=== PATIENT | female | born 1990 | race Caucasian/White ===

== ENCOUNTER 2018-04-29 17:55 | Emergency (ER) | payer OTHER, SELFPAY ==
[2018-04-29 18:00] VITALS: BP 125/81; PULSE 102; RESP 20; TEMP 37; O2SAT 100
[2018-04-29 18:24] LABS: Add Manual Diff / Slide Review NO; Basophils Absolute Auto 100 /uL (0-100); Basophils Percent Auto 0.4 % (0-2); Eosinophils Absolute Auto 0 /uL (0-450); Eosinophils Percent Auto 0.2 % (2-4); Hematocrit 43.8 % (36-46); Hemoglobin 14.6 g/dL (12.0-16.0); Lymphocytes Absolute Auto 400 /uL (1100-4500); Lymphocytes Percent Auto 2.3 % (25-40); Mean Corpuscular HGB Conc 33.3 % (30-36); Mean Corpuscular Hemoglobin 29.7 PG (26-34); Mean Corpuscular Volume 89.4 fL (80-100); Monocytes Absolute Auto 400 /uL (0-900); Monocytes Percent Auto 2.5 % (3-14); Neutrophils Absolute Auto 15800 /uL (1500-7000); Neutrophils Percent Auto 94.6 % (50-75); Platelet Count 183 X10^3/uL (150-400); Red Cell Distribution Width 12.6 % (11.6-14.8); White Blood Cell Count 16.8 X10^3/uL (4.5-11.0)
[2018-04-29] MEDS: ONDANSETRON 4 MG ODT SL (18:29)
[2018-04-29] MEDS: SODIUM CHLORIDE 0.9% 1,000 ML 1000 ML IV ×2 (18:29→19:38)
[2018-04-29 18:33] LABS: Alanine Aminotransferase 20 IU/L (9-52); Albumin 4.8 g/dL (3.5-5.0); Albumin Globulin Ratio 1.4 (1.0-2.8); Alkaline Phosphatase 47 U/L (38-126); Aspartate Aminotransferase 19 IU/L (14-36); BUN Creatinine Ratio 24.4 (6-22); Bilirubin Total 0.7 mg/dL (0.2-1.3); Blood Urea Nitrogen 22 mg/dL (7-17); Calcium 9.1 mg/dL (8.4-10.2); Carbon Dioxide 23 mmol/L (22-32); Chloride 106 mmol/L (98-107); Estimated Glomerular Filt Rate > 60.0 mL/min (>60); Globulin 3.5 g/dL (1.7-4.1); Glucose 91 mg/dL (70-100); HEMOLYSIS < 15 (0-50); Potassium 3.6 mmol/L (3.4-5.1); Sodium 142 mmol/L (137-145); Total Protein 8.3 g/dL (6.3-8.2)
--- NOTE | 2018-04-29 19:14 | ED.ABDPAIN ---
HPI - Abdominal Pain General Chief Complaint: Abdominal Pain Stated Complaint: Vomiting, diahrrea, chills Time Seen by Provider: 04/29/18 19:14 Source: patient Mode of arrival: ambulatory Limitations: no limitations History of Present Illness HPI narrative: 27-year-old otherwise healthy female here for evaluation of less than 24 hr of nausea vomiting and diarrhea. Did travel to [place] recently. No history of antibiotic use. No urinary symptoms. No vaginal discharge. No blood in the stool or the vomit. No fevers. Related Data Previous Rx's Medication Instructions Recorded ondansetron 4 mg PO Q6-8H PRN #10 tab 04/29/18 Allergies Allergy/AdvReac Type Severity Reaction Status Date / Time No Known Drug Allergies Allergy Verified 04/29/18 18:02 Review of Systems Constitutional Denies fever(s) and Denies headache(s) ENT Ears, Nose, Mouth, and Throat: Denies vertigo, Denies dizziness and Denies headache(s) Cardiovascular Denies chest pain and Denies dyspnea Respiratory Denies dyspnea Gastrointestinal Gastrointestinal: Reports abdominal pain, Reports diarrhea, Reports nausea and Reports vomiting Genitourinary Denies dysuria and Denies flank pain Musculoskeletal Denies myalgias and Denies arthralgias Integumentary/Breasts Denies rash Neurologic Denies vertigo, Denies dizziness and Denies headache(s) Hematologic/Lymphatic Denies easy bleeding and Denies easy bruising PFSH Medical History Healthy adult (Acute) Surgical History No pertinent past surgical history (Acute) Social History lives independently: Yes Exam Initial Vital Signs Initial Vital Signs: Vital Signs Temperature 98.6 F 04/29/18 18:00 Pulse Rate 102 H 04/29/18 18:00 Respiratory Rate 20 04/29/18 18:00 Blood Pressure 125/81 04/29/18 18:00 Pulse Oximetry 100 04/29/18 18:00 Const General: cooperative, healthy appearing, comfortable, well developed, well groomed and No acute distress Orientation: alert, awake and oriented x3 HENMT Head: normal to inspection and normocephalic Resp Effort & Inspection: normal respiratory effort Auscultation: clear to auscultation bilaterally Cardio Rate: regular rate Rhythm: regular rhythm GI Inspection: non-distended Palpation: soft, No firm and tender (Generalized tenderness without rebound or guarding) Skin Lesions: no lesions Rashes: no rashes Neuro General: alert, awake and oriented x3 Extrem General: normal to inspection and capillary refill normal Psych Appearance: grossly normal and well kempt Course Orders Ordered: ED Orders 04/29/18 18:15 CBC [Complete Blood Count AUTO DIFF] Stat Comprehensive Metabolic Panel Stat Discontinued Medications Sodium Chloride (Normal Saline 0.9%) 1,000 mls @ 1,000 mls/hr IV BOLUS ONE Stop: 04/29/18 19:15 Last Infusion: 04/29/18 20:25 Dose: 0 mls/hr Admin: 04/29/18 18:29 Dose: 1,000 mls/hr Sodium Chloride (Normal Saline 0.9%) 1,000 mls @ 1,000 mls/hr IV BOLUS ONE Stop: 04/29/18 20:30 Last Admin: 04/29/18 19:38 Dose: 1,000 mls/hr Ondansetron HCl (Zofran Odt) 4 mg SL NOW ONE Stop: 04/29/18 18:07 Last Admin: 04/29/18 18:29 Dose: 4 mg Ondansetron HCl (Zofran) 4 mg IV NOW ONE Stop: 04/29/18 19:32 Last Admin: 04/29/18 19:38 Dose: 4 mg Ondansetron HCl (Zofran Odt Prepack) 1 bottle MISC SEEINSTR ONE Stop: 04/29/18 20:43 Vital Signs - 8 hr 04/29/18 18:00 04/29/18 20:05 Temperature 98.6 F Pulse Rate 102 H 89 Respiratory Rate 20 17 Blood Pressure 125/81 Blood Pressure [Left Arm] 115/75 Pulse Oximetry 100 100 MDM - Abdominal Pain Lab Data Attestation: I reviewed the patient's lab results. Result diagrams: 04/29/18 18:15 04/29/18 18:15 Lab Results 04/29/18 04/29/18 Range/Units 18:15 18:15 WBC 16.8 H (4.5-11.0) X10^3/uL RBC 4.90 (4.0-5.2) X10^6/uL Hgb 14.6 (12.0-16.0) g/dL Hct 43.8 (36-46) % MCV 89.4 (80-100) fL MCH 29.7 (26-34) PG MCHC 33.3 (30-36) % RDW 12.6 (11.6-14.8) % Plt Count 183 (150-400) X10^3/uL Neut % (Auto) 94.6 H (50-75) % Lymph % (Auto) 2.3 L (25-40) % Marshall % (Auto) 2.5 L (3-14) % Eos % (Auto) 0.2 L (2-4) % Baso % (Auto) 0.4 (0-2) % Neut # (Auto) 92014 H (9641-9741) /uL Lymph # (Auto) 400 L (1127-0475) /uL Marshall # (Auto) 400 (0-900) /uL Eos # (Auto) 0 (0-450) /uL Baso # (Auto) 100 (0-100) /uL Sodium 142 (137-145) mmol/L Potassium 3.6 (3.4-5.1) mmol/L Chloride 106 (98-107) mmol/L Carbon Dioxide 23 (22-32) mmol/L BUN 22 H (7-17) mg/dL Creatinine 0.90 (0.52-1.04) mg/dL Estimated GFR > 60.0 (>60) mL/min BUN/Creatinine Ratio 24.4 H (6-22) Glucose 91 (70-100) mg/dL Calcium 9.1 (8.4-10.2) mg/dL Total Bilirubin 0.7 (0.2-1.3) mg/dL AST 19 (14-36) IU/L ALT 20 (9-52) IU/L Alkaline Phosphatase 47 (38-126) U/L Total Protein 8.3 H (6.3-8.2) g/dL Albumin 4.8 (3.5-5.0) g/dL Globulin 3.5 (1.7-4.1) g/dL Albumin/Globulin Ratio 1.4 (1.0-2.8) MDM Narrative Medical decision making narrative: Patient with a benign abdominal exam. Does have a leukocytosis however this could be secondary to demargination from her vomiting that she has been having since noon or also from a viral gastritis. Will hold on CT scan for now given her exam. She feels much better after the fluids and the Zofran. She was tolerating oral intake. Will hold on further workup for now. Will send home with a prescription for Zofran. She was given return precautions. She expressed understanding and agreement with plan. Discharge Plan Departure Patient Disposition: Home Clinical Impression: Nausea & vomiting, Abdominal pain, Diarrhea Instructions: Diarrhea, DI for Abdominal Pain-Adult, Nausea and Vomiting-Adult Activity Restrictions/Additional Instructions: Take the nausea medication as needed. Make sure your staying hydrated by drinking small amounts of fluid over long periods of time. If your abdominal pain changes or gets worse return to the emergency department for further evaluation Prescriptions: New ondansetron 4 mg tablet,disintegrating 4 mg PO Q6-8H PRN (Reason: nausea and vomiting) Qty: 10 RF: 0
[2018-04-29] MEDS: ONDANSETRON 4 MG/2 ML INJ IV (19:38)
[2018-04-29 20:05] VITALS: BP 115/75; PULSE 89; RESP 17; O2SAT 100
[2018-04-29] MEDS: ONDANSETRON 4 MG ODT PREPACK 1 BOTTLE MISC (20:52)
[2018-04-29 20:54] VITALS: BP 105/55; PULSE 88; RESP 18; O2SAT 98
== END 2018-04-29 20:54 | disposition home or self-care (01) ==
PROVIDERS: Emergency Provider Emergency Medicine
DX: R11.10 Vomiting, unspecified (principal); R10.9 Unspecified abdominal pain; R19.7 Diarrhea, unspecified
CPT/HCPCS: 36591; 80053; 85025; 96361; 96374; 99283; 99285; J2405

== ENCOUNTER → 2020-09-22 09:15 | Outpatient (CLI) | payer OTHER, SELFPAY ==
--- NOTE | 2020-09-22 09:16 | DI.US.S_ITS ---
PROCEDURE: US OB <= 14 WEEKS FETUS INDICATIONS: DATES OUTSIDE/PRIOR DATING DATA: Last menstrual period (LMP): 07/26/20 LMP-based estimated date of delivery (LUIS ANTONIO): 05/02/21. First dating scan (date and location): This study, 09/22/20. Estimated date of delivery (LUIS ANTONIO) from first dating scan: 05/09/21. TECHNIQUE: Real-time scanning was performed of the fetus and maternal pelvic organs, with image documentation. Endovaginal scanning was also performed to better visualize the fetus and maternal ovaries. COMPARISON: None. FINDINGS: Embryos: There is a twin gestation, early, with estimated gestational age by crown rump length of 7 weeks 2 days for fetus a and 7 weeks 0 days for fetus B. However, no cardiac activity was seen at either of the 2 gestations. The morphology is indicative of diamniotic monochorionic or diamniotic dichorionic. Measurement variability in dating: +/- 4 weeks by LMP, +/- 7 days by mean sac diameter (use before 6 weeks gestation if crown-rump length not able to be measured), +/- 5 days by crown-rump length (up to 8 weeks 6 days gestation), +/- 7 days by crown-rump length (up to 13 weeks 6 days gestation). Maternal organs: Ovaries normal.. IMPRESSION: Twin gestation, ranging between 7 weeks 0 days and 7 weeks 2 days of estimated gestational age. Diamniotic gestational sacs. No cardiac activity observed. With estimated gestational age noted above cardiac activity should be observed. Correlation with quantitative beta HCG may be warranted. Dictated by: Bentley Khan M.D. on 09/22/2020 at 14:11 Approved by: Bentley Khan M.D. on 09/22/2020 at 14:21
[2020-09-22 17:30] LABS: HCG Quantitative /Beta subunit 46216 mIU/mL
== END ==
PROVIDERS: PCP Family Medicine; Referring Provider Family Medicine; Visit Provider Family Medicine
DX: O30.001 Twin pregnancy, unspecified number of placenta and unspecified number of amniotic sacs, first trimester (principal); Z3A.01 Less than 8 weeks gestation of pregnancy
CPT/HCPCS: 36415; 76801; 76802; 76817; 84702

== ENCOUNTER → 2020-09-24 10:35 | Outpatient (CLI) | payer OTHER, SELFPAY ==
[2020-09-24 11:28] LABS: Appearance Urine UA CLEAR; Bilirubin Urine UA NEGATIVE (NEGATIVE); Color Urine UA YELLOW; Glucose Urine UA NEGATIVE (Negative); Ketones Urine UA NEGATIVE (NEGATIVE); Leukocyte Esterase Urine UA TRACE (NEGATIVE); Nitrite Urine UA NEGATIVE (Negative); Occult Blood Urine UA TRACE-INTACT (Negative); Protein Urine UA NEGATIVE (Negative); Specific Gravity Urine UA 1.025 (1.000-1.035); Urobilinogen Urine UA 0.2 E.U./dL (0.2)
[2020-09-24 11:31] LABS: pH Urine UA 5.5 (4.5-8.0)
[2020-09-24 11:43] LABS: Amorphous Sediment Urine 2+; Bacteria Urine Few (2-10); Culture Indicated Urine Cult Not Indicated; Mucus Urine 2+ (Negative); RBC Urine 1-5/HPF (0-5/HPF); Squamous Epithelial Cell Urine 5-10 /HPF (0-5/HPF); WBC Urine 1-5/HPF (0-5/HPF)
[2020-09-24 12:27] LABS: HCG Quantitative /Beta subunit 46076 mIU/mL
== END ==
PROVIDERS: PCP Family Medicine; Referring Provider Family Medicine; Visit Provider Family Medicine
DX: Z34.81 Encounter for supervision of other normal pregnancy, first trimester (principal); Z34.90 Encounter for supervision of normal pregnancy, unspecified, unspecified trimester
CPT/HCPCS: 81003; 81015; 84702; 87086

== ENCOUNTER → 2020-09-28 10:00 | Outpatient (CLI) | payer OTHER, SELFPAY ==
[2020-09-28 11:24] LABS: COVID19 -Nasal RAPID Negative (Negative)
== END ==
PROVIDERS: PCP Family Medicine; Visit Provider Obstetrics & Gynecology
DX: Z01.812 Encounter for preprocedural laboratory examination (principal); Z20.822 Contact with and (suspected) exposure to COVID-19
CPT/HCPCS: 87635

== ENCOUNTER 2020-09-29 06:43 | Day surgery (SDC) | payer OTHER, SELFPAY ==
[2020-09-28 14:34] VITALS: BMI 29.1
[2020-09-29] VITALS (7 sets, daily range): BP systolic 113–124; BP diastolic 66–87; PULSE 62–99; RESP 11–16; TEMP 36.1–37.3; O2SAT 98–100; BMI 29.1
--- NOTE | 2020-09-29 | PATH_ITS ---
[facility] Accession Number: [id number] . 01 Material submitted: . product of conception - PRODUCTS OF CONCEPTION . 02 Diagnosis: Products of Conception: Products of conception identified. [facility] 10/02/2020 1048 Local . 02 Electronically signed: . Evie Chinchilla MD, Pathologist NPI- [id number] . 01 Gross description: . The specimen is received in formalin, labeled products of conception and consists of multiple bro-pink fragments of soft tissue and clotted blood measuring 10.0 x 6.5 x 2.0 cm in aggregate. Candidate chorionic villi are identified. No parts are identified. Systems Architect sections are submitted in cassettes A1-A3. ([id number]) /[facility] 10/01/2020 0909 Local . 02 Pathologist provided ICD-10: O02.1 . 02 CPT . 903286 Performed at: 01 [facility] Cytology [address] [place] [id number] MD Azam Whiting MD Phone: [phone] Performed at: 02 [facility] [address] [place], [place] [id number] MD Jennifer Bullock MD Phone: [phone]
[2020-09-29] MEDS: LACTATED RINGERS 1,000 ML 100 ML IV (07:13)
--- NOTE | 2020-09-29 07:14 | SUR.OPER ---
Lithotomy on padded OR bed, head on pillow, arms secured on padded arm boards at <90 degrees abduction. Legs secured in padded yellow fins stirrups.
--- NOTE | 2020-09-29 07:36 | PM.HP.1 ---
History of Present Illness History of Present Illness Date Patient Seen: 09/29/20 Time Patient Seen: 07:36 Chief complaint: SDC Narrative: Patient is a 30-year-old 2 para 1 with a missed at 7 weeks with a twin gestation. She presents for a scheduled suction D&C. Patient History Medical History (Updated 09/07/20 @ 13:01 by Sallie August, RN) Acne (~1999) Colon polyps (~2018) Cystic acne Healthy adult Hemorrhoids IBS (irritable bowel syndrome) (~2015) Irritable bowel syndrome with constipation (~2015) Overweight (BMI 25.0-29.9) Plantar warts (~1999) labor (~2015) (spontaneous vaginal delivery) (~10/23/15) Surgical History (Updated 09/07/20 @ 12:27 by Sallie August RN) Anesthesia Gave to child recently (~10/23/15) History of colonoscopy (~2019) History of removal of skin mole (~2005) No pertinent past surgical history [place] teeth removed (~2007) Family & Social History Family History (Updated 09/07/20 @ 12:25 by Sallie August, SHARA) Father History of kidney cancer Hypertension Mother Chronic back pain Grandfather History of heart disease Breast cancer Colon cancer Grandmother Cancer Grandfather History of heart disease Hypertension Hyperlipidemia Stroke Aortic aneurysm Grandmother Breast cancer Dementia Cancer Daughter Asthma Family/Other COPD (chronic obstructive pulmonary disease) Family/Other Hyperlipidemia Hypertension Social History: household members spouse,children lives independently Yes Tobacco & Substance use: Smoking Status Never smoker alcohol intake former Substance Use Type does not use Meds Home Medications and Allergies Home Medications Medication Instructions Recorded Confirmed Type prenat.vits,sunil,[id number] 1 tab PO DAILY 09/07/20 09/29/20 History Allergies Allergy/AdvReac Type Severity Reaction Status Date / Time No Known Drug Allergies Allergy Verified 09/29/20 07:05 Exam Vital Signs (past 8 hours): - 09/29/20 07:05 Temperature 97 F L Pulse Rate 62 Respiratory Rate 14 Blood Pressure 119/76 Pulse Oximetry 100 Oxygen Delivery Method Room Air Narrative Exam Narrative: HEENT: No thyromegaly, no anterior cervical or supraclavicular lymphadenopathy. Lungs:Clear to auscultation bilaterally, no wheezes. Cardiovascular: Regular rate and rhythm, no murmurs, rubs, or gallops. Abdomen: No scars. No hepatosplenomegaly. No masses palpable. External genitalia: Normal Vagina: Normal Cervix: Normal Bimanual exam: 9 Week size uterus. Mobile. Assessment & Plan Assessment & Plan narrative: Assessment: 30-year-old 2 para 1 with a missed of a twin gestation at 7 weeks Plan: Suction D&C The risks, benefits, and alternatives to the procedure were explained to the patient. The risks including bleeding, infection, and uterine perforation. She understands these risks and agrees to proceed. A full par Q was held and consent form was signed. COVID-19 COVID-19 status: Negative Result date/Date tested (Pos, Neg/Pending): 09/28/20 Time Spent With Patient Time with patient: 15-24 minutes
--- NOTE | 2020-09-29 07:38 | PM.PREOP ---
Pre-operative Note COVID-19 COVID-19 status: Negative Result date/Date tested (Pos, Neg/Pending): 09/28/20 Interval Note History & Physical reviewed/Exam performed by Physician: Yes Changes to H&P: No H&P completed within 30 days and has changed as indicated here:: 09/29/20
--- NOTE | 2020-09-29 08:25 | PM.GYNOP.1 ---
Operative Date/Time/Diagnoses Date of procedure: 09/29/20 Time of procedure: 08:25 Pre-op diagnosis: Missed of twins at 7 weeks gestation Post-op diagnosis: same Procedure & Clinicians Procedure: Procedures Operation Date: 09/29/20 07:45 Actual Procedures Side Surgeon rosalia Pearson MD Indications: Missed of twins at 7 weeks gestation Surgeon: Loreta Pearson Anesthesia Type: General (LMA) Operative Notes Findings: 9 week size anteverted uterus Large amount of products conception Closure Type: not applicable Specimen(s): products of conception Estimated blood loss (mL): 100 Blood products transfused: none Procedure in detail: After informed consent was obtained, the patient was taken to the operating room where she was placed in the dorsal supine position. After adequate LMA general anesthesia was achieved, she was placed in the dorsal lithotomy position, and prepped and draped in the usual sterile fashion. A time-out was performed. A bivalve speculum was placed into the vagina and the anterior lip of the cervix was grasped with a single-tooth tenaculum. The cervical os was sequentially dilated to the # 9 Hegar dilator. The # 8 curved plastic curette passed easily into the endometrial cavity. Several passes with suction revealed fluid from both sacs. There was a large amount of tissue. The last few passes were blood only. The suction curette was removed from the uterus. Gentle sharp curettage was performed yielding minimal amount of tissue and a large amount of blood. The ?sandpaper? feel of the uterus was appreciated. One more pass with suction revealed blood only. The curette was removed from the uterus. There was minimal amount of bleeding coming from the cervical os. The single-tooth tenaculum was removed from the anterior lip of the cervix. The bivalve speculum was removed from the vagina. A bimanual exam was performed which revealed a well contracted 8 week size anteverted uterus. Sponge, lap, and instrument counts were correct x2. The patient tolerated the procedure well, and was taken to PACU in stable condition. Complications: none Post-operative Condition: stable Disposition: PACU Plan for aftercare: Home after recovery
== END 2020-09-29 09:16 | disposition home or self-care (01) ==
PROVIDERS: PCP Family Medicine; Referring Provider Obstetrics & Gynecology; Visit Provider Obstetrics & Gynecology
PROC: (CPT 58120; principal; 2020-09-29 07:45)
DX: O02.1 Missed abortion (principal); Z3A.01 Less than 8 weeks gestation of pregnancy
CPT/HCPCS: 59820; J1100; J1885; J2250; J2405; J2704; J3010

== ENCOUNTER → 2021-02-16 10:43 | Outpatient (CLI) | payer OTHER, SELFPAY ==
[2021-02-16 11:20] LABS: COVID19 -Nasal RAPID Negative (Negative)
== END ==
PROVIDERS: PCP Family Medicine; Referring Provider Nurse Practitioner Family; Visit Provider Nurse Practitioner Family
DX: Z20.822 Contact with and (suspected) exposure to COVID-19 (principal)
CPT/HCPCS: 87635

== ENCOUNTER 2021-04-12 18:19 | Emergency (ER) | payer OTHER, SELFPAY ==
[2021-04-12 18:22] VITALS: BP 148/74; PULSE 97; RESP 18; TEMP 37.1; O2SAT 99
--- NOTE | 2021-04-12 18:35 | DI.US.S_ITS ---
PROCEDURE: US OB <= 14 WEEKS FETUS INDICATIONS: approx 5 weeks preg, bleeding OUTSIDE/PRIOR DATING DATA: Last menstrual period (LMP): 03/09/2021. LMP-based estimated date of delivery (LUIS ANTONIO): 12/14/2021. First dating scan (date and location): 04/12/2021. Estimated date of delivery (LUIS ANTONIO) from first dating scan: Approximately 12/10/2021. TECHNIQUE: Real-time scanning was performed of the fetus and maternal pelvic organs, with image documentation. Endovaginal scanning was also performed to better visualize the fetus and maternal ovaries. COMPARISON: [facility], , OB <= 14 WEEKS FETUS, 09/22/2020, 9:44. FINDINGS: Embryo: No pole seen at this time. Mean gestational sac diameter 0.7 cm, estimated gestational age 5 weeks 3 days. A yolk sac is seen. Heart rate: Not applicable. Maternal organs: Ovaries are within normal limits. Right corpus luteum measuring 2.1 cm. IMPRESSION: 1. Intrauterine gestational sac estimated at 5 weeks 3 days. A yolk sac is present. No pole at this time. 2. No perigestational hemorrhage. Recommend short-term follow-up OB ultrasound to document the pole. We strive to produce accurate, complete, and clear reports of imaging services. To assist us in improving patient care, this report was composed using standard report templates and voice recognition software. Therefore, it may contain abnormal punctuation, insertions and/or omissions. Occasional wrong-word or sound-alike substitutions may occur. Though we review the report and make efforts to correct it, we do recommend that the report be read carefully in proper context to recognize any text inaccuracies. Dictated by: Dale Hurtado M.D. on 04/12/2021 at 19:31 Approved by: Dale Hurtado M.D. on 04/12/2021 at 19:34
[2021-04-12 18:42] LABS: Add Manual Diff / Slide Review NO; Basophils Absolute Auto 100 /uL (0-100); Basophils Percent Auto 0.6 % (0-2); Eosinophils Absolute Auto 200 /uL (0-450); Eosinophils Percent Auto 1.3 % (2-4); Hematocrit 37.5 % (36-46); Hemoglobin 12.8 g/dL (12.0-16.0); Lymphocytes Absolute Auto 3200 /uL (1100-4500); Lymphocytes Percent Auto 26.3 % (25-40); Mean Corpuscular HGB Conc 34.1 % (30-36); Mean Corpuscular Hemoglobin 30.1 PG (26-34); Mean Corpuscular Volume 88.2 fL (80-100); Monocytes Absolute Auto 700 /uL (0-900); Monocytes Percent Auto 5.5 % (3-14); Neutrophils Absolute Auto 8000 /uL (1500-7000); Neutrophils Percent Auto 66.3 % (50-75); Platelet Count 225 X10^3/uL (150-400); Red Blood Cell Count 4.25 X10^6/uL (4.0-5.2); Red Cell Distribution Width 12.6 % (11.6-14.8)
[2021-04-12 18:50] LABS: Alanine Aminotransferase 19 IU/L (<35); Albumin 4.5 g/dL (3.5-5.0); Albumin Globulin Ratio 1.3 (1.0-2.8); Alkaline Phosphatase 40 U/L (38-126); Aspartate Aminotransferase 20 IU/L (14-36); BUN Creatinine Ratio 14.3 (6-22); Bilirubin Total 0.2 mg/dL (0.2-1.3); Blood Urea Nitrogen 11 mg/dL (7-17); Calcium 9.8 mg/dL (8.4-10.2); Carbon Dioxide 28 mmol/L (22-32); Chloride 106 mmol/L (98-107); Estimated Glomerular Filt Rate > 60.0 mL/min (>60); Globulin 3.5 g/dL (1.7-4.1); Glucose 92 mg/dL (70-100); HEMOLYSIS < 15 (0-50); Potassium 4.1 mmol/L (3.4-5.1); Sodium 139 mmol/L (137-145)
[2021-04-12 19:07] LABS: HCG Quantitative /Beta subunit 5772.3 mIU/mL
--- NOTE | 2021-04-12 20:48 | ED.GENADULT ---
HPI - General Adult General Chief complaint: OB/Uterine Contractions Stated complaint: 5wks , Back Pain, Blood Time Seen by Provider: 04/12/21 20:43 Source: patient Mode of arrival: Ambulatory History of Present Illness HPI narrative: 30-year-old female. at approximately 5 weeks EGA here for evaluation of a couple days of left sided back discomfort. No cramping. She did have a miscarriage earlier this year is concerned that that potentially was going on again. No urinary symptoms. Nausea but no vomiting. No fevers. She stated that she did have some spotting earlier today and some discharge Related Data Home Medications Medication Instructions Recorded Confirmed prenat.vits,sunil,olm-jlnc-yaqwj 1 tab PO DAILY 09/07/20 02/16/21 Previous Rx's Medication Instructions Recorded oxycodone 5 mg capsule 5 mg PO Q4H PRN #10 cap 09/29/20 amoxicillin 875 mg tablet 875 mg PO BID #14 tab 02/18/21 Allergies Allergy/AdvReac Type Severity Reaction Status Date / Time No Known Drug Allergies Allergy Verified 02/16/21 10:47 Review of Systems Constitutional Constitutional: Reports system reviewed and no additional complaints, except as documented Gastrointestinal Gastrointestinal: Reports system reviewed and no additional complaints, except as documented Genitourinary Genitourinary: Reports system reviewed and no additional complaints, except as documented Integumentary/Breasts Skin/Breast: Reports system reviewed and no additional complaints, except as documented Hematologic/Lymphatic On Anticoagulants: No Patient History Medical History Acne (~1999) Colon polyps (~2018) Cystic acne Healthy adult Hemorrhoids IBS (irritable bowel syndrome) (~2015) Irritable bowel syndrome with constipation (~2015) Overweight (BMI 25.0-29.9) Plantar warts (~1999) labor (~2015) (spontaneous vaginal delivery) (~10/23/15) Surgical History (Updated 09/07/20 @ 12:27 by Sallie August RN) Anesthesia Gave to child recently (~10/23/15) History of colonoscopy (~2019) History of removal of skin mole (~2005) No pertinent past surgical history [place] teeth removed (~2007) Family History (Updated 09/07/20 @ 12:25 by Sallie August RN) Father History of kidney cancer Hypertension Mother Chronic back pain Grandfather History of heart disease Breast cancer Colon cancer Grandmother Cancer Grandfather History of heart disease Hypertension Hyperlipidemia Stroke Aortic aneurysm Grandmother Breast cancer Dementia Cancer Daughter Asthma Family/Other COPD (chronic obstructive pulmonary disease) Family/Other Hyperlipidemia Hypertension Social History marital status: number of children: 1 household members: spouse and children lives independently: Yes pets and animals: Yes (X 1 dog) education level: college occupational status: employed current occupational exposures/hazards: No Previous occupational history: Admin now; 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 [employer] yazmin/mu-ism: [employer] special yazmin needs: No Smoking Status: Never smoker second hand exposure: No alcohol intake: former substance use type: does not use Smoking Status: Never smoker Substance Use Type: does not use Exam Initial Vital Signs Initial Vital Signs: Vital Signs Temperature 98.7 F 04/12/21 18:22 Pulse Rate 97 H 04/12/21 18:22 Respiratory Rate 18 04/12/21 18:22 Blood Pressure 148/74 H 04/12/21 18:22 Pulse Oximetry 99 04/12/21 18:22 Const General: cooperative and comfortable HENMT Head: normal to inspection and normocephalic Resp Effort & Inspection: normal respiratory effort Auscultation: clear to auscultation bilaterally Cardio Rate: regular rate GI Inspection: normal to inspection and non-distended Back/Spine/Pelvis Other: Mild discomfort left CVA region Skin General: no rashes or lesions noted Neuro General: patient alert and patient awake Extrem General: normal to inspection Psych Appearance: grossly normal and well kempt Course Orders Ordered: ED Orders 04/12/21 18:30 ABO RH Type Stat Complete Blood Count AUTO DIFF Stat Comprehensive Metabolic Panel Stat HCG Quantitative /Beta subunit Stat 04/12/21 18:35 US OB <= 14 weeks fetus Stat Vital Signs Vital signs: Vital Signs - 8 hr 04/12/21 21:13 Pulse Rate 80 Respiratory Rate 16 Blood Pressure 136/74 Pulse Oximetry 97 Medical Decision Making Lab Data Lab results reviewed: Yes I reviewed the patient's lab results. Result diagrams: 04/12/21 18:30 04/12/21 18:30 Labs: Lab Results 1204/12/21 04/12/21 Range/Units 18:30 18:30 18:30 WBC 12.0 H (4.5-11.0) X10^3/uL RBC 4.25 (4.0-5.2) X10^6/uL Hgb 12.8 (12.0-16.0) g/dL Hct 37.5 (36-46) % MCV 88.2 (80-100) fL MCH 30.1 (26-34) PG MCHC 34.1 (30-36) % RDW 12.6 (11.6-14.8) % Plt Count 225 (150-400) X10^3/uL Neut % (Auto) 66.3 (50-75) % Lymph % (Auto) 26.3 (25-40) % [place] % (Auto) 5.5 (3-14) % Eos % (Auto) 1.3 L (2-4) % Baso % (Auto) 0.6 (0-2) % Neut # (Auto) 8000 H (3008-9065) /uL Lymph # (Auto) 3200 (7227-2011) /uL [place] # (Auto) 700 (0-900) /uL Eos # (Auto) 200 (0-450) /uL Baso # (Auto) 100 (0-100) /uL Sodium 139 (137-145) mmol/L Potassium 4.1 (3.4-5.1) mmol/L Chloride 106 (98-107) mmol/L Carbon Dioxide 28 (22-32) mmol/L BUN 11 (7-17) mg/dL Creatinine 0.77 (0.52-1.04) mg/dL Estimated GFR > 60.0 (>60) mL/min BUN/Creatinine Ratio 14.3 (6-22) Glucose 92 (70-100) mg/dL Calcium 9.8 (8.4-10.2) mg/dL Total Bilirubin 0.2 (0.2-1.3) mg/dL AST 20 (14-36) IU/L ALT 19 (<35) IU/L Alkaline Phosphatase 40 (38-126) U/L Total Protein 8.0 (6.3-8.2) g/dL Albumin 4.5 (3.5-5.0) g/dL Globulin 3.5 (1.7-4.1) g/dL Albumin/Globulin Ratio 1.3 (1.0-2.8) HCG, Quant 5772.3 mIU/mL Blood Type A Negative Point of Care Testing Test Results Positive Urine Dip Bedside Urine Glucose Negative Bedside Urine Bilirubin - Negative Bedside Urine Ketone - Negative Urine Specific [place] 1.015 Bedside Urine Occult Blood +/- Bedside Urine pH 6.0 Bedside Urine Protein - Negative Bedside Urine Urobilinogen - Negative Bedside Urine Nitrite - Negative Bedside Urine Leukocytes + 70 Esterase Point of care testing: Point of Care Testing Test Results Positive Urine Dip Bedside Urine Glucose Negative Bedside Urine Bilirubin - Negative Bedside Urine Ketone - Negative Urine Specific [place] 1.015 Bedside Urine Occult Blood +/- Bedside Urine pH 6.0 Bedside Urine Protein - Negative Bedside Urine Urobilinogen - Negative Bedside Urine Nitrite - Negative Bedside Urine Leukocytes + 70 Esterase Imaging Data US - OB: Radiologist's Impression: [address] [address] Ultrasound Report Signed Patient: Angelic Corley MR#: [id number] : 1990 Acct:[id number] Age/Sex: 30 / F Date of Service: 04/12/21 Loc: ED Accession Number: [id number] ?? Procedure: US OB <= 14 weeks fetus Ordering Provider: Hima Gerber D.O. PROCEDURE:? US OB <= 14 WEEKS FETUS ? INDICATIONS:? approx 5 weeks preg, bleeding ? OUTSIDE/PRIOR DATING DATA:? Last menstrual period (LMP):? 03/09/2021.? LMP-based estimated date of delivery (LUIS ANTONIO):? 12/14/2021.? First dating scan (date and location):? 04/12/2021.? Estimated date of delivery (LUIS ANTONIO) from first dating scan:? Approximately 12/10/2021. ? TECHNIQUE:? Real-time scanning was performed of the fetus and maternal pelvic organs, with image documentation.? Endovaginal scanning was also performed to better visualize the fetus and maternal ovaries.? ? COMPARISON:? [facility], , US OB <= 14 WEEKS FETUS, 09/22/2020, 9:44. ? FINDINGS:? ? Embryo:? No pole seen at this time.? Mean gestational sac diameter 0.7 cm, estimated gestational age 5 weeks 3 days.? A yolk sac is seen. Heart rate:? Not applicable. ? Maternal organs:? Ovaries are within normal limits.? Right corpus luteum measuring 2.1 cm. ? ? ? IMPRESSION:? 1. Intrauterine gestational sac estimated at 5 weeks 3 days.? A yolk sac is present.? No pole at this time. ? 2. No perigestational hemorrhage. ? Recommend short-term follow-up OB ultrasound to document the pole. ? ? ? We strive to produce accurate, complete, and clear reports of imaging services. To assist us in improving patient care, this report was composed using standard report templates and voice recognition software. Therefore, it may contain abnormal punctuation, insertions and/or omissions. Occasional wrong-word or sound-alike substitutions may occur. Though we review the report and make efforts to correct it, we do recommend that the report be read carefully in proper context to recognize any text inaccuracies. ? Dictated by: Dale Hurtado M.D. on 04/12/2021 at 19:31 ? ? Approved by: Dale Hurtado M.D. on 04/12/2021 at 19:34?? MDM Narrative Medical decision making narrative: Patient told triage that she did have some spotting earlier today but she informed me that she did not have any vaginal bleeding. No fevers. She is Rh negative however given her early gestational age an no definitive bleeding we will hold on RhoGAM. Ultrasound shows 5 weeks 3 days gestational sac and yolk sac. I did discuss the findings of the ultrasound with the patient. Will discharge home and have her follow-up with though be routinely. She was given return precautions. She expressed understanding and agreement. Discharge Plan Departure Patient Disposition: Home Clinical Impression: , Back pain Instructions: DI for -- Discomforts and Remedies Activity Restrictions/Additional Instructions: Your workup here in the emergency department is very reassuring. The ultrasound does show a intrauterine at just over 5 weeks gestation. Be sure to continue to take her vitamins. Be sure to increase her fluid intake. Keep all of your scheduled medical appointments. Return to the emergency department for any new or worsening symptoms. Prescriptions: No Action amoxicillin 875 mg tablet 875 mg PO BID Qty: 14 0RF prenat.vits,sunil,snf-mrwc-idbjw Tablet 1 tab PO DAILY 0RF oxycodone 5 mg capsule 5 mg PO Q4H PRN (Reason: pain) Qty: 10 0RF Referrals: Amelie Mckeon DO [Primary Care Provider] -
--- NOTE | 2021-04-12 21:09 | PC.NURSE ---
pt c/o back pain, spotting. states about 5 weeks . appears well
[2021-04-12 21:13] VITALS: BP 136/74; PULSE 80; RESP 16; O2SAT 97
== END 2021-04-12 21:13 | disposition home or self-care (01) ==
PROVIDERS: Emergency Medicine; Emergency Provider Emergency Medicine; PCP Family Medicine
DX: O26.891 Other specified pregnancy related conditions, first trimester (principal); Z3A.01 Less than 8 weeks gestation of pregnancy; M54.50 Low back pain, unspecified
CPT/HCPCS: 36415; 76801; 76817; 80053; 81003; 81025; 84702; 85025; 86900; 86901; 99283; 99284

== ENCOUNTER → 2021-04-15 17:44 | Outpatient (CLI) | payer OTHER, SELFPAY ==
[2021-04-15 19:23] LABS: HCG Quantitative /Beta subunit 11513 mIU/mL
== END ==
PROVIDERS: PCP Family Medicine; Referring Provider Obstetrics & Gynecology; Visit Provider Obstetrics & Gynecology
DX: Z34.81 Encounter for supervision of other normal pregnancy, first trimester (principal)
CPT/HCPCS: 36415; 84702

== ENCOUNTER → 2021-06-08 14:00 | Outpatient (CLI) | payer OTHER, SELFPAY ==
[2021-06-08 15:03] LABS: Add Manual Diff / Slide Review NO; Basophils Absolute Auto 0 /uL (0-100); Basophils Percent Auto 0.2 % (0-2); Eosinophils Absolute Auto 100 /uL (0-450); Hematocrit 34.1 % (36-46); Hemoglobin 11.3 g/dL (12.0-16.0); Lymphocytes Absolute Auto 1800 /uL (1100-4500); Lymphocytes Percent Auto 14.8 % (25-40); Mean Corpuscular HGB Conc 33.3 % (30-36); Mean Corpuscular Hemoglobin 29.9 PG (26-34); Mean Corpuscular Volume 89.6 fL (80-100); Monocytes Absolute Auto 800 /uL (0-900); Monocytes Percent Auto 6.3 % (3-14); Neutrophils Absolute Auto 9200 /uL (1500-7000); Neutrophils Percent Auto 77.7 % (50-75); Platelet Count 234 X10^3/uL (150-400); Red Cell Distribution Width 12.6 % (11.6-14.8); White Blood Cell Count 11.8 X10^3/uL (4.5-11.0)
[2021-06-08 16:00] LABS: Appearance Urine UA CLEAR; Bilirubin Urine UA NEGATIVE (NEGATIVE); Color Urine UA YELLOW; Glucose Urine UA 1+ g/dL (Negative); Ketones Urine UA TRACE (NEGATIVE); Leukocyte Esterase Urine UA TRACE (NEGATIVE); Nitrite Urine UA NEGATIVE (Negative); Occult Blood Urine UA 1+ (Negative); Protein Urine UA TRACE (Negative); Specific Gravity Urine UA >=1.030 (1.000-1.035); Urobilinogen Urine UA 0.2 E.U./dL (0.2)
[2021-06-08 16:02] LABS: pH Urine UA 5.5 (4.5-8.0)
[2021-06-08 16:37] LABS: Amorphous Sediment Urine 2+; Bacteria Urine Moderate (10-30); RBC Urine 0-1/HPF (0-5/HPF); Renal Epithelial Cells Urine 1-5/HPF (0-1/HPF); Squamous Epithelial Cell Urine 5-10 /HPF (0-5/HPF); WBC Urine 5-10/HPF (0-5/HPF)
[2021-06-08 16:38] LABS: Mucus Urine 1+ (Negative)
[2021-06-09 06:19] LABS: RPR Screen Non Reactive (Non Reactive)
[2021-06-09 09:33] LABS: Varicella IgG Antibody 555 index (Immune >165)
[2021-06-09 19:25] LABS: Rubella Antibody IgG 13.1 IU/mL (>15)
[2021-06-09 19:32] LABS: Hepatitis B Surface Antigen NEGATIVE s/c (NEGATIVE)
[2021-06-09 19:48] LABS: HIV 1 & 2 Ab/Ag 4th Gen Combo NEGATIVE (NEGATIVE); Hep C Virus Ab w/Reflex Quant NEGATIVE s/c (NEGATIVE)
== END ==
PROVIDERS: PCP Family Medicine; Referring Provider Obstetrics & Gynecology; Visit Provider Obstetrics & Gynecology
DX: Z34.81 Encounter for supervision of other normal pregnancy, first trimester (principal)
CPT/HCPCS: 36415; 80055; 81003; 81015; 86787; 86803; 86850; 86900; 86901; 87086; 87389

== ENCOUNTER → 2021-07-06 13:55 | Outpatient (CLI) | payer OTHER, SELFPAY ==
[2021-07-08 20:26] LABS: AFP, Serum 59.3 ng/mL (.); Calc Gestational Age Ultrasound (.); Estriol, Free 1.46 ng/mL (.); Inhibin A, Dimeric 264.58 pg/mL (.); Inhibin A, MoM 1.98 (.); Maternal Ethnicity Caucasian (.); Maternal Weight 196 lbs (.); Number of Fetuses No (.); OSBR Risk 1 IN 1218 (.); Results Report (.); Test Results *Screen Negative* (.); hCG, MoM 2.14 (.); hCG, Serum 61046 mIU/mL (.)
== END ==
PROVIDERS: PCP Family Medicine; Referring Provider Obstetrics & Gynecology; Visit Provider Obstetrics & Gynecology
DX: Z34.82 Encounter for supervision of other normal pregnancy, second trimester (principal); Z3A.17 17 weeks gestation of pregnancy
CPT/HCPCS: 36415; 82105; 82677; 84702; 86336

== ENCOUNTER → 2021-08-05 11:13 | Outpatient (CLI) | payer OTHER, SELFPAY ==
[2021-08-05 14:03] LABS: Urine N gonorrhoeae NOT DETECTED
[2021-08-05 15:35] LABS: Urine Chlamydia NOT DETECTED
== END ==
PROVIDERS: PCP Family Medicine; Visit Provider Obstetrics & Gynecology
DX: Z11.3 Encounter for screening for infections with a predominantly sexual mode of transmission (principal)
CPT/HCPCS: 87491; 87591

== ENCOUNTER → 2021-08-06 12:16 | Outpatient (CLI) | payer OTHER, SELFPAY ==
--- NOTE | 2021-08-06 12:17 | DI.US.S_ITS ---
PROCEDURE: US OB >= 14 WEEKS FETUS INDICATIONS: ANATOMY SCAN OUTSIDE/PRIOR DATING DATA: Last menstrual period (LMP): March 09, 2021. LMP-based estimated date of delivery (LUIS ANTONIO): December 14, 2021. First dating scan (date): April 12, 2021. Estimated date of delivery (LUIS ANTONIO) from first dating scan: December 10, 2021. TECHNIQUE: Real-time scanning was performed of the fetus, with image documentation and biometric measurements. COMPARISON: None. FINDINGS: General: A single living intrauterine gestation is present. Presentation: Vertex. Placenta: Placental position is anterior , without previa. Amniotic fluid index: 14.8 cm, normal range is 5-24 cm. Single deepest vertical pocket is 4.6 cm. heart rate: 143 beats per minute. Maternal cervical canal: 4.4 cm long. Normal lower limit is 2.5 cm. biometrics: Biparietal diameter: 5.1 cm Head circumference: 20 cm Abdominal circumference: 18.3 cm Femur length: 3.9 cm Clinically estimated gestational age: 22 weeks Composite gestational age from present scan: 22 weeks, 2 days Estimated weight and percentile: 532 g; 82 percentile Anatomic survey: Neuro: Ventricles are non-dilated at less than 10 mm. Cisterna magna is normal at 3-11 mm. Cerebellum is normal in size and morphology. Nuchal skin fold: Normal at less than 6 mm between 14-21 weeks gestational age. Face: Nose and lips, facial profile are normal. Spine: No evidence for spina bifida. Heart: 4-chambered heart is present, with normal ventricular outflow tracts. Diaphragm: Diaphragm is intact. Stomach: Left-sided stomach is present. Kidneys: No hydronephrosis. Normal is less than 5 mm in 2nd trimester, less than 7 mm in 3rd trimester. Cord: 3-vessel cord has orthotopic insertion. Bladder: Normal in size. Extremities: All 4 extremities identified. IMPRESSION: Live single intrauterine gestation as detailed above. We strive to produce accurate, complete, and clear reports of imaging services. To assist us in improving patient care, this report was composed using standard report templates and voice recognition software. Therefore, it may contain abnormal punctuation, insertions and/or omissions. Occasional wrong-word or sound-alike substitutions may occur. Though we review the report and make efforts to correct it, we do recommend that the report be read carefully in proper context to recognize any text inaccuracies. Dictated by: Steve Harris M.D. on 08/06/2021 at 14:46 Approved by: Steve Harris M.D. on 08/06/2021 at 14:48
== END ==
PROVIDERS: PCP Family Medicine; Referring Provider Obstetrics & Gynecology; Visit Provider Obstetrics & Gynecology
DX: Z34.82 Encounter for supervision of other normal pregnancy, second trimester (principal); Z3A.22 22 weeks gestation of pregnancy
CPT/HCPCS: 76811

== ENCOUNTER → 2021-09-10 09:39 | Outpatient (CLI) | payer OTHER, SELFPAY ==
[2021-09-10 11:54] LABS: Hematocrit 32.1 % (36-46)
[2021-09-10 12:17] LABS: GTT (PREG) 1 Hour PP 50gm Dose 134 mg/dL (76-139)
== END ==
PROVIDERS: PCP Family Medicine; Referring Provider Obstetrics & Gynecology; Visit Provider Obstetrics & Gynecology
DX: Z34.82 Encounter for supervision of other normal pregnancy, second trimester (principal); Z3A.26 26 weeks gestation of pregnancy
CPT/HCPCS: 36415; 82950; 85014; 85018; 86850

== ENCOUNTER → 2021-11-17 14:28 | Outpatient (CLI) | payer OTHER, SELFPAY ==
[2021-11-18 13:59] LABS: Strep Grp B PCR NEG for Grp B Strep
== END ==
PROVIDERS: PCP Family Medicine; Visit Provider Obstetrics & Gynecology
DX: Z34.83 Encounter for supervision of other normal pregnancy, third trimester (principal); Z3A.36 36 weeks gestation of pregnancy
CPT/HCPCS: 87653

== ENCOUNTER 2021-12-06 06:48 | Inpatient (IN) | payer OTHER, SELFPAY ==
[2021-12-06 07:49] LABS: Add Manual Diff / Slide Review NO; Basophils Absolute Auto 0 /uL (0-100); Basophils Percent Auto 0.2 % (0-2); Eosinophils Absolute Auto 100 /uL (0-450); Eosinophils Percent Auto 0.5 % (2-4); Hematocrit 35.2 % (36-46); Hemoglobin 12.3 g/dL (12.0-16.0); Lymphocytes Absolute Auto 1800 /uL (1100-4500); Lymphocytes Percent Auto 15.2 % (25-40); Mean Corpuscular HGB Conc 34.9 % (30-36); Mean Corpuscular Hemoglobin 31.4 PG (26-34); Monocytes Absolute Auto 600 /uL (0-900); Monocytes Percent Auto 5.1 % (3-14); Neutrophils Absolute Auto 9200 /uL (1500-7000); Platelet Count 159 X10^3/uL (150-400); Red Blood Cell Count 3.91 X10^6/uL (4.0-5.2); Red Cell Distribution Width 13.6 % (11.6-14.8); White Blood Cell Count 11.7 X10^3/uL (4.5-11.0)
[2021-12-06 08:03] LABS: COVID19 -Nasal RAPID Negative (Negative)
[2021-12-06] MEDS: LACTATED RINGERS 1,000 ML 100 ML IV (08:48)
[2021-12-06] MEDS: OXYTOCIN PREMIX 30 UNIT/500 ML PLAST..BAG IV (08:49)
[2021-12-06 09:18] VITALS: BP 137/86
--- NOTE | 2021-12-06 09:43 | P.HPOB_ITS ---
OB HPI Date/Time Date of admission: 12/06/21 Date Patient Seen: 12/06/21 Time Patient Seen: 08:15 History of Present Condition Chief complaint: INDUCTION LUIS ANTONIO Calculator Estimated Delivery Date Method Current WG Current Estimate 12/14/21 LMP (Certain) 38w 6d Other Estimates 12/13/21 Ultrasound #1 39w 0d 12/14/21 Ultrasound #2 38w 6d : 3 Para: 1 care: good care, initiated at week # (8), number of visits (10) and pounds weight gain (40) Dating criteria OB: LMP confirmed by 1st trimester US Ultrasounds: normal 1st trimester US and normal mid trimester US Obstetrical complications: other (LGA) Medical complications OB: none Indications Indication for induction OB: other (LGA) Preadmission Labs Last OB Lab Results: Blood Type A Negative 12/06/21 07:30 Antibody Screen Negative 12/06/21 07:30 Hematocrit 35.2 % (36-46) L 12/06/21 07:30 Hemoglobin 12.3 g/dL (12.0-16.0) 12/06/21 07:30 Hepatitis B Surface Antigen Negative s/c (NEGATIVE) 06/08/21 14 :06 Hepatitis C Antibody Negative s/c (NEGATIVE) 06/08/21 14:06 Rubella Antibody 13.1 IU/mL (>15) L 06/08/21 14:06 Varicella-Zoster IgG Antibody 555 index (Immune >165) 06/08/21 14:06 Glucose 1 Hour 134 mg/dL (76-139) 09/10/21 09:45 Group B Streptococcus (PCR) Neg for grp b strep 11/17/21 18:56 -: Chlamydia screen: negative, Gonorrhea screen: negative and Urine: negative Genetic Screens: Quad screen: Normal External Labs -: Urine: negative Prior (ies) Past Pregnancies Del. Date GA/Weeks Labor Lgth Wt Sex Route Outcome Anesthesia Place Delv Breastfeed Preg Comp Name 10/23/15 37.3 11 6 lb 15 oz Female vaginal live - full te rm epidural PA, [place] 10 weeks : IUD stopped supply labor Fanny 09/29/20 7w3d spontaneous spontaneous Delivery Date: 10/23/15 Last Updated by: Sallie August RCandice *PTL started at 34 weeks : Rx and then off meds at 37 weeks and baby came 3 days later; SROM. *Tear with repair and still has painful sex. *Struggled PP due to many issues : sad and angry. Never received any help. Delivery Date: 09/29/20 Last Updated by: Bea Aguiar R.N. [place] twins. No FHR on 8 wk US. Missed AB with D&C. Evaluation Evaluation Baseline heart rate: 140 Variability: Moderate (11-25) monitor accelerations: Present Monitor Decelerations: Absent Status: Category l Dilation (cm): 2 Effacement (%): 75 station: -2 Position of cervix: posterior Consistency: soft ON LICENSE OF [facility] Medical History (Updated 10/19/21 @ 13:59 by Loreta Pearson MD) Acne (~1999) Colon polyps (~2018) Cystic acne Hemorrhoids Irritable bowel syndrome with constipation (~2015) Overweight (BMI 25.0-29.9) Plantar warts (~1999) labor (~2015) Rh negative status during (spontaneous vaginal delivery) (~10/23/15) Surgical History (Updated 04/29/21 @ 12:24 by Bea Aguiar RN) Anesthesia H/O dilation and curettage (~09/29/20) History of colonoscopy (~2019) History of removal of skin mole (~2005) [place] teeth removed (~2007) Family History (Updated 04/29/21 @ 12:25 by Bea Aguiar RN) Father History of kidney cancer Hypertension Mother Chronic back pain Grandfather History of heart disease Breast cancer Colon cancer Grandmother Cancer Grandfather History of heart disease Hypertension Hyperlipidemia Stroke Aortic aneurysm Grandmother Breast cancer Dementia Cancer Daughter Asthma Family/Other COPD (chronic obstructive pulmonary disease) Family/Other Hyperlipidemia Hypertension Social History marital status: number of children: 1 household members: spouse and children lives independently: Yes caregiver/support person: No housing: house pets and animals: Yes (X 1 dog, 1 cat: aware. ) education level: college occupational status: employed current occupational exposures/hazards: No Previous occupational history: [employer] Job with [employer] yazmin/taoist: [employer] special yazmin needs: No seatbelt use: always water heater temp set < 120 deg: Yes working smoke detector in home: Yes fire extinguisher in home: Yes carbon monox detector in home: Yes firearms in home: Yes firearms unloaded and locked: Yes do you feel safe at home: Yes Smoking Status: Never smoker second hand exposure: No alcohol intake: former substance use type: does not use during the past year weight has: remained stable well-balanced diet: about half the time (r/t current aversions, nausea.) daily servings fruits/ve or more times/day caffeine: No frequency: does not exercise (Worried -- afraid to risk , with her history of SAB. ) Meds Home Medications and Allergies Home Medications Medication Instructions Recorded Confirmed Type aspirin 81 mg tablet,delayed 81 mg PO DAILY 04/29/21 11/29/21 History release (Enteric Coated Aspirin) prenat.vits,sunil,frl-fosx-cmgaw 1 tab PO DAILY 04/29/21 11/29/21 History pyridoxine (vitamin B6) 50 mg 50 mg PO DAILY 05/10/21 11/29/21 History tablet ondansetron 4 mg disintegrating 4 mg PO Q6H PRN nausea and 06/08/21 11/29/21 Rx tablet vomiting #20 tabs Double electric breast pump #1 ea 09/02/21 11/29/21 Rx Allergies Allergy/AdvReac Type Severity Reaction Status Date / Time No Known Drug Allergies Allergy Verified 11/29/21 13:27 OB Exam Narrative Exam Narrative: Generally: Patient is sitting up in bed, no acute distress Lungs: Clear to auscultation bilaterally Cardiovascular: Regular rate and rhythm Fundal height: 42 cm Estimated weight: 9 lb Extremities: 1+ edema Objective Labs Result Diagrams: 12/06/21 07:30 Labs: Laboratory Results - last 24 hr 12/06/21 12/06/21 12/06/21 07:30 07:30 07:30 WBC 11.7 H RBC 3.91 L Hgb 12.3 Hct 35.2 L MCV 90.0 MCH 31.4 MCHC 34.9 RDW 13.6 Plt Count 159 Neut % (Auto) 79.0 H Lymph % (Auto) 15.2 L [place] % (Auto) 5.1 Eos % (Auto) 0.5 L Baso % (Auto) 0.2 Neut # (Auto) 9200 H Lymph # (Auto) 1800 [place] # (Auto) 600 Eos # (Auto) 100 Baso # (Auto) 0 SARS-CoV-2 (PCR) Negative Blood Type A Negative Antibody Screen Negative Assessment and Plan Assessment and Plan Assessment and Plan narrative: Assessment: 31-year-old 3 para 1 at estimated gestational age of 39 weeks gestation with a large for gestational age baby Plan: Pitocin per protocol 2 Epidural as necessary Expected management to spontaneous vaginal delivery Time Spent with Patient Total time spent with greater than 50% in coordination of care (as documented) at patient's floor/unit and/or counseling patient:: 15-24 minutes
--- NOTE | 2021-12-06 18:53 | PM.OBPRVD ---
Events: Labor Induction Labor & Delivery Delivery date: 12/06/21 Cervical ripening method: none Induction method: per pitocin protocol Delivery monitor: external FHT and external uterine Route of delivery: Episiotomy description: None L&D Laceration Description: Perineal - 2nd Degree and Vaginal - 2nd Degree Delivery repair: chromic Estimated blood loss (mL): 100 Anesthesia Type: Epidural Complications: None Narrative: Patient complete and pushed for 2 hours. At 5:18 p.m., a live male delivered spontaneously in the MYA presentation over an intact perineum. A mild shoulder dystocia was relieved with Kavin maneuver and suprapubic pressure. The was placed on mom's abdomen. After the cord stopped pulsing, the cord was double clamped and cut. Cord bloods were obtained. Pitocin was given in the IV fluids. The placenta delivered intact with a three-vessel cord at 5:30 p.m.. Fundus was massaged to firm. A second-degree vaginal/perineal laceration was repaired in the usual fashion. Estimated blood loss 100 cc. Apgars 8 at 1 minute and 9 at 5 minutes. Weight 9 lb 6 oz. . Epidural analgesia. Mom and stable to recovery. [place] Baby 1: Infant gender: Male Presentation: vertex Position: Left Occiput Anterior Placenta delivery description: Spontaneous Cord Vessel Description: 3 Vessels and Clamped/Cut score (1 min): 8 score (5 min): 9 weight: 9 lb 6 oz Plan for aftercare: Routine care
[2021-12-06] MEDS: IBUPROFEN 600 MG TABLET PO (20:50)
[2021-12-06] MEDS: ACETAMINOPHEN 325 MG TABLET 650 MG PO (20:50)
[2021-12-07] MEDS: DERMOPLAST SPRAY 20% 60 ML 1 SPRAY TOP (03:14)
[2021-12-07] MEDS: IBUPROFEN 600 MG TABLET PO ×3 (03:15→16:30)
[2021-12-07] MEDS: ACETAMINOPHEN 325 MG TABLET 650 MG PO ×3 (03:15→16:30)
[2021-12-07 07:15] LABS: Hematocrit 33.9 % (36-46); Hemoglobin 11.7 g/dL (12.0-16.0)
--- NOTE | 2021-12-07 08:24 | P.DS_ITS ---
Discharge Providers Provider Date of admission: 12/06/21 06:48 Discharge Date: 12/07/21 Primary care physician: Amelie Mckeon DO Consults: 12/07/21 18:18 Consult to Research Epidemiologist Routine Comment: Discharge provider: Loreta Pearson MD Summary Hospital Course Date Patient Seen: 12/07/21 Time Patient Seen: 07:30 Diagnoses: Estimated gestational age of 39 weeks Large for gestational age infant Induction of labor with Pitocin Spontaneous vaginal delivery Second-degree perineal/vaginal laceration and repair Epidural analgesia Hospital Course: Patient is a 31-year-old 3 para 2 who presented at an estimated gestational age of 39 weeks gestation for induction of labor due to a large for gestational age infant. She was started on Pitocin. She had a spontaneous rupture of membranes. She received an epidural for pain management. She progressed to complete dilation and pushed for 2 hours. She had a spontaneous vaginal delivery with a mild shoulder dystocia. She had a second-degree vaginal/perineal laceration which was repaired. Her course was unremarkable. She is discharged home on day # 1. Peripartum Data Infant Delivery Method: Natural Vaginal Laceration Description: Perineal - 2nd Degree and Vaginal - 2nd Degree Episiotomy description: None Procedures: Pitocin induction of labor Epidural analgesia Spontaneous vaginal delivery Second-degree vaginal/perineal laceration repair 1: Gender: Male Disposition of : home Status at Discharge Cognitive/behavioral status at discharge: oriented Functional status at discharge: independent ambulation Overall status at discharge: patient is progressing back to baseline Time Spent with Patient Time attestation: Total time spent providing and/or coordinating discharge services: Time spent: Less than 30 minutes Objective Labs Result Diagrams: 12/07/21 06:55 Labs: Laboratory Results - last 24 hr 12/06/21 12/07/21 07:30 06:55 Hgb 11.7 L Hct 33.9 L Blood Type A Negative Antibody Screen Negative Exam Narrative Exam Narrative: Generally: Patient is sitting up in bed, nursing infant, no acute distress Fundus: Firm at U Extremities: 1+ edema, negative Homans Discharge Plan Discharge Plan Patient Disposition: Home Provider Discharge Comment: Call with fever, chills, or bleeding vaginally more than a pad in an hour Ibuprofen 600 mg every 6 hours as needed Tylenol 650 mg every 6 hours as needed Discharge orders & Medications Prescriptions: Continued prenat.vits,sunil,lkv-fqro-ibnsi Tablet 1 tab PO DAILY Discontinued pyridoxine (vitamin B6) 50 mg tablet 50 mg PO DAILY ondansetron 4 mg tablet,disintegrating 4 mg PO Q6H PRN (Reason: nausea and vomiting) Qty: 20 3RF aspirin [Enteric Coated Aspirin] 81 mg tablet,delayed release (DR/EC) 81 mg PO DAILY No Action (DME) Double electric breast pump See Rx Instructions .Route .MEDSUPPLY Qty: 1 0RF Rx Instructions: Use electric breast pump and supplies as directed for 99 months. LUIS ANTONIO 12/14/21 Follow up/Referrals: Loreta Pearson MD [Physician] - 6 Weeks Diet/Activity/Treatments Diet: Regular Activity: Nothing in the vagina for 6 weeks Skin/Wound/Dressing Care Report to your healthcare provider any signs of infection, such as:: chills, fever, increased pain and unusual drainage Visit Report/Discharge Packet Instructions: DI for Labor and Delivery, Vaginal Discharge Data Primary Care Provider: Amelie Mckeon
[2021-12-07] MEDS: DOCUSATE 100 MG CAPSULE PO (09:30)
[2021-12-07 09:31] VITALS: TEMP 36.4
[2021-12-07] MEDS: PRENATAL VIT,CALC/IRON/FOLIC 1 TABLET 1 TAB PO (09:31)
[2021-12-07 13:59] VITALS: BP 117/84; PULSE 74; RESP 18; TEMP 36.3
[2021-12-07] MEDS: MEASLES,MUMPS,RUBELLA VACC/PF 0.5 ML VIAL SUBCUT (16:11)
[2021-12-07] MEDS: RHO(D) IMMUNE GLOBULIN 1,500 UNIT SYRINGE 1500 UNIT IM (16:19)
== END 2021-12-07 16:45 | disposition home or self-care (01) | DRG 807 ==
PROVIDERS: Obstetrics & Gynecology; Specialist; Admitting Provider Family Medicine; PCP Family Medicine; Referring Provider Family Medicine; Visit Provider Family Medicine
DX: O36.63X0 Maternal care for excessive fetal growth, third trimester, not applicable or unspecified (principal); Z37.0 Single live birth; O66.0 Obstructed labor due to shoulder dystocia; O70.1 Second degree perineal laceration during delivery; Z3A.39 39 weeks gestation of pregnancy; Z20.822 Contact with and (suspected) exposure to COVID-19
CPT/HCPCS: 01967; 36415; 59050; 59400; 85014; 85018; 85025; 86850; 86900; 86901; 87635; C9803; G0379; J2590; J2790